=== PATIENT | male | born 1985 | race Caucasian/White ===

== ENCOUNTER 2016-05-21 21:57 | Emergency (ER) | payer OTHER ==
[2016-05-21 22:28] LABS: HEMOGLOBIN 14.4 gm/dl (14.0-17.5); RED BLOOD COUNT 4.71 M/UL (4.20-5.50); WHITE BLOOD COUNT 7.4 K/UL (4.5-11.0)
[2016-05-21 22:55] LABS: BUN/CREATININE RATIO 17 (0-10)
== END 2016-05-22 02:00 | disposition home or self-care (01) ==
LOC: ER1 21:57
PROVIDERS: Family Medicine
DX: R09.1 Pleurisy (principal); F17.210 Nicotine dependence, cigarettes, uncomplicated; Z88.0 Allergy status to penicillin
CPT/HCPCS: 36415; 71020; 80053; 82550; 82553; 83874; 84484; 85025; 85379; 93005; 96372; 99285; J1885

== ENCOUNTER 2020-10-08 14:17 | Emergency (ER) | payer OTHER ==
[~2020-10-08 14:17] MED LIST: IBUPROFEN600 MG PO; PERCOCET 5/325 T1 EA PO; ZOFRAN 4 MG TAB4 MG PO
[2020-10-08] MEDS ORDERED: NAPROSYN500 MG PO (17:48)
[2020-10-08] MEDS ORDERED: ONDANSETRON ODT4 MG SL (17:48)
== END 2020-10-08 18:30 | disposition home or self-care (01) ==
LOC: ER1 14:17
DX: S92.351A Displaced fracture of fifth metatarsal bone, right foot, initial encounter for closed fracture (principal); S93.401A Sprain of unspecified ligament of right ankle, initial encounter; Z90.89 Acquired absence of other organs; Z88.0 Allergy status to penicillin; F17.200 Nicotine dependence, unspecified, uncomplicated; Y93.67 Activity, basketball; X58.XXXA Exposure to other specified factors, initial encounter; Y92.009 Unspecified place in unspecified non-institutional (private) residence as the place of occurrence of the external cause
CPT/HCPCS: 73610; 73630; 99283

== ENCOUNTER → 2020-10-31 | Outpatient (CLI) | payer OTHER ==
[~2020-10-31] MED LIST changes: +NAPROSYN500 MG PO; +ONDANSETRON ODT4 MG SL
== END ==
LOC: KOH-I 09:08
DX: S92.351A Displaced fracture of fifth metatarsal bone, right foot, initial encounter for closed fracture (principal); S92.351D Displaced fracture of fifth metatarsal bone, right foot, subsequent encounter for fracture with routine healing
CPT/HCPCS: 73630

== ENCOUNTER → 2020-11-26 | Outpatient (CLI) | payer OTHER | LOC: KOH-I 12:06 | DX: M79.671 Pain in right foot (principal); S92.351D Displaced fracture of fifth metatarsal bone, right foot, subsequent encounter for fracture with routine healing | CPT/HCPCS: 73630 ==

== ENCOUNTER 2021-07-12 20:54 | Emergency (ER) | payer OTHER | END 2021-07-13 03:09 | disposition home or self-care (01) | LOC: ER1 20:54 | DX: J06.9 Acute upper respiratory infection, unspecified (principal); Z20.822 Contact with and (suspected) exposure to COVID-19; Z88.0 Allergy status to penicillin | CPT/HCPCS: 0240U; 71045; 99283 ==

== ENCOUNTER → 2021-11-21 | Outpatient (CLI) | payer OTHER | LOC: EXRD 10:48 | DX: R05.9 Cough, unspecified (principal); S83.241A Other tear of medial meniscus, current injury, right knee, initial encounter | CPT/HCPCS: 71046 ==